=== PATIENT | male | born 1990 | race African-American/Black ===

== ENCOUNTER 2020-07-17 18:19 | Emergency (ER) | payer BC ==
[~2020-07-17] VITALS: Ht 175.3 cm; Wt 165.6 kg
[2020-07-17] MEDS ORDERED: ALBUTEROL SULF8.5 G1 INH (18:38)
[2020-07-17] MEDS ORDERED: ADVAIR 250-501 EACH INH (18:38)
[2020-07-17] MEDS ORDERED: Ipratropium 0.02% Inh Soln 2.5ml UD HHN ONE (18:45)
[2020-07-17] MEDS ORDERED: Albuterol ud Inhalation HHN ONE (18:45)
[2020-07-17 18:57] VITALS: BP 161/91
[2020-07-17] MEDS ORDERED: PREDNISONE20 MG ORAL (18:57)
--- NOTE | 2020-07-17 18:57 | Emergency Room Report ---
History of Present Illness General Chief Complaint: General Complaint Source: Patient Present Illness HPI Disclaimer: Please note that this report is being documented using [facility] technology. This can lead to erroneous entry secondary to incorrect interpretation by the dictating instrument. HPI: 30-year-old male history of asthma presented for medication refill. He is requesting a controller medication in addition to a hand-held albuterol inhaler. Patient recently finished a course of prednisone 2 days ago. He states he still having some coughing and intermittent wheezing. He has a doctor's appointment at the end of the month. Denies any fevers nausea vomiting. Complains of a skin tag on his neck that has been present for many years. PMH: Asthma PSH: Reviewed Social Hx: Denies smoking drinking or illicit drug use Allergies: Coded Allergies: No Known Allergies (Unverified , 07/17/20) COVID-19 Screening Contact w/high risk pt: No Experienced COVID-19 symptoms?: No COVID-19 Testing performed EDGE BONDER: No Patient History Reviewed Nursing Documentation: PMH: Agreed; PSxH: Agreed Nursing Documentation-PMH Past Medical History: No History, Except For Hx Asthma: Yes Review of Systems All Other Systems: negative except mentioned in HPI Physical Exam Vital Signs Date Time Temp Pulse Resp B/P (MAP) Pulse Ox O2 Delivery O2 Flow Rate FiO2 07/17/20 18:23 98.2 90 20 152/92 (112) 94 Room Air Sp02 EP Interpretation: reviewed, normal General Appearance: well appearing, no apparent distress Head: normocephalic, atraumatic Eyes: bilateral eye PERRL, bilateral eye EOMI ENT: hearing grossly normal, moist mucus membranes Neck: full range of motion, supple Respiratory: no rhonchi, no respiratory distress, no retraction, other - Scant expiratory wheeze noted Cardiovascular #1: normal peripheral pulses, regular rate, rhythm, no murmur Gastrointestinal: non tender, soft, non-distended, no guarding Neurologic: alert, oriented x3, no focal defects Skin: normal color, warm/dry Medical Decision Making Diagnostic Impression: Primary Impression: Medication refill Additional Impression: History of asthma ER Course Patient presented for medication refill. He is requesting asthma medications. He had a very scant wheeze. But denies any shortness of breath. In the ER did give him 1 albuterol treatment. Will discharge with a controller medication albuterol. He just finished a course of prednisone and did not wish to restart any prednisone since he just finished however I did provide a prescription of prednisone if he does not improve with his controller medication. Otherwise he was in no respiratory distress he was nontoxic-appearing. Will be discharged home with follow-up with his PMD. Last Vital Signs Date Time Temp Pulse Resp B/P (MAP) Pulse Ox O2 Delivery O2 Flow Rate FiO2 07/17/20 18:33 90 20 07/17/20 18:23 98.2 152/92 (112) 94 Room Air Disposition: HOME, SELF-CARE Condition: Stable Scripts Fluticasone/Salmeterol (Advair 250-50 Diskus) 1 Each Blst.w.dev 1 PUFF INH EVERY 12 HOURS for 30 Days, #1 EA Prov: Juwan García M.D. 07/17/20 Albuterol Sulfate* (Albuterol Sulfate Hfa*) 8.5 Gm Hfa.aer.ad 2 PUFF INH Q4H, #1 INH Prov: Juwan García M.D. 07/17/20 Referrals: [facility] Melia Parekh [facility] Patient Instructions: Asthma, Adult, [id number] Additional Instructions: Patient is instructed to follow-up with her primary care doctor, primary care clinic or county clinic in 1 to 2 days. Patient instructed to return for any worsening symptoms or concerns. Juwan García M.D. Jul 17, 2020 18:57
== END 2020-07-17 19:06 | disposition home or self-care (01) ==
LOC: EMR 18:39
DX: Z76.0 Encounter for issue of repeat prescription (principal); J45.909 Unspecified asthma, uncomplicated; R05 Cough; R06.2 Wheezing; L91.8 Other hypertrophic disorders of the skin
CPT/HCPCS: 99283